=== PATIENT | female | born 1955 | race Asian ===

== ENCOUNTER 2022-02-04 19:49 | Emergency (ER) | payer BC, OTHER, SELFPAY ==
[~2022-02-04] VITALS: Ht 157.5 cm; Wt 53.6 kg
[2022-02-04 19:50] VITALS: BP 142/93
== END 2022-02-04 21:37 | disposition home or self-care (01) ==
LOC: M ED 19:49
DX: L02.211 Cutaneous abscess of abdominal wall (principal); I10 Essential (primary) hypertension; E11.9 Type 2 diabetes mellitus without complications; G35 Multiple sclerosis; E78.5 Hyperlipidemia, unspecified; Z88.8 Allergy status to other drugs, medicaments and biological substances